=== PATIENT | male | born 1995 | race Caucasian/White ===

== ENCOUNTER 2025-02-25 20:31 | Emergency (ER) | payer BC ==
[~2025-02-25] VITALS: Ht 185.4 cm; Wt 98.9 kg
--- NOTE | 2025-02-25 21:07 | Physician Documentation ---
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 Patient reports he irrigated with eye wash prior to arrival Medication Reconciliation Allergies: Coded Allergies: No Known Allergies (Unverified , 02/25/25) Scheduled Ciprofloxacin Hcl Ophth* (Ciloxan 0.35 Ophth Drops*), 2 DROP RIGHTEYE Q6H Review of Systems ROS As stated above in the HPI, otherwise all systems are reviewed and negative. Physical Exam Vital Signs: Temperature: 99.5, Source: Temporal, Heart Rate: 104, Respiratory Rate: 16, BP: 155/91, Pulse Oximetry: 97, Weight: 98.900 Oxygen Flow Rate: 0 Physical Exam VITALS: Reviewed and as above. GENERAL: Alert, nontoxic appearing, no apparent distress. HEENT: Right eye erythematous, no periorbital swelling, PERRLA, EOMI without pain. Fluorescein dye uptake at 5 o'clock position of right eye no evidence of foreign body, no Sallie sign RESPIRATORY: No increased work of breathing, no respiratory distress, speaking in full clear sentences Progress Results/Orders Results/Orders Completed Orders - JULIÁN HERNANDEZ CART PUSHER Proparacaine Ophth Solution (Alcaine Oph (02/25/25 23:45) Ciprofloxacin Ophth Drops (Ciloxan 0.3% (02/26/25 00:15) Vital Signs 02/25/25 02/26/25 20:55 00:42 Temp 99.5 98.6 Pulse 104 99 Resp 16 18 B/P (MAP) 155/91 153/89 Pulse Ox 97 99 O2 Flow Rate 0 Medical Decision Making Additional information obtaine: N/A Findings MSE performed in triage and patient returned to ED lobby by nursing staff to await available ED room This is a 29-year-old male presented with pain in erythema to his right eye after having some foreign material into his eye earlier, patient reported he did rinse it out though continued to have foreign body sensation, fluorescein exam did not demonstrate evidence of foreign body though did show fluorescein uptake at the 5 o'clock position of the eye consistent with corneal abrasion. Reassuringly there was no Sallie sign, no pain with EOMI and no periorbital swelling or erythema. Patient to be treated with course of ciprofloxacin eyedr ops. Patient is otherwise well-appearing and appropriate for outpatient follow up. follow up instructions return to care precautions and home care instructions. Ear Diff. Dx: Considerations: Unlikely: Abrasion, Cerumen impaction, Foreign body, Otitis externa, Barotrauma, Otitis media, Perforation, Referred pain- dental, Referred pain-pharyngitis, Referred pain-sinusitis, Referred pain-TMJ syn., Tympanic Membrane Injury, Other Eye Diff. Dx: Considerations: Include: Chalaz[place], Conjuctivits-allergic, Conjuctivitis-bacterial, Conjuctivits-chlamydial, Conjuctivitis-viral, Corneal abrasion, Corneal laceration, Corneal ulceration, Foreign body-conjuctiva, Foreign body-corneal, Foreign body-intraocular, Foreign body-lid, Glaucoma, Iritis, Orbital cellulitis, Periobital cellulitis, Retinal artery occulsion, Retinal vein occlusion, Rust ring, Subconjunctival hem, Ultraviolet keratitis, Uveitis, Vitreous hemorrhage Nose Diff. Dx: Considerations: Unlikely: Abrasion, Anterior nasal bleed, Avulsion, Contusion, Coagulopathy, Fracture-nasal bone, Fracture-septum, Hypertension, Laceration, Other, Posterior nasal bleed, Retained foreign body, Septal hematoma Tooth Diff. Dx: Considerations: Unlikely: Alveolar fracture, Aveolar osteitis, ANUG, Facial cellulitis, Periapical abscess, Periodontal abscess, Post-extraction bleeding, Pulpitis, Trigeminal neuralgia, Tooth-avulsion, Tooth- eruption, Tooth-fracture, Tooth-subluxation, Other Throat Diff Dx: Considerations: Unlikely: AIDS, Epiglottitis, Esophageal candidiasis, Hand foot mouth disease, Herpangina, Herpetic stomatitis, Herpes simplex, Infection mononucleosis, Immunodeficiency, Deyvi's angina, Peritonsillar abscess, Peritonsillar cellulitis, Pharyngitis-diphtheria, Pharyngitis-strepococcal, Pharyngitis-viral, Thrush, URI, Other Departure Time of Disposition: 00:24 Disposition: 01 HOME / SELF CARE / HOMELESS Impression: Primary Impression: Corneal abrasion Qualified Codes: S05.01XA - Injury of conjunctiva and corneal abrasion without foreign body, right eye, initial encounter Condition: Improved Discharge Instructions: Corneal Abrasion Additional Instructions: Please use the antibiotic eyedrops as prescribed. You may discontinue using the antibiotic ear drops after three days if pain and redness dissipates, otherwise continue utilizing the eyedrops for five days. Please follow up with your primary care provider in the next few days. Please return to the emergency department for any new or worsening concerning symptoms. Referrals: NO PRIMARY CARE PROVIDER (PCP) Prescriptions Ciprofloxacin Hcl Ophth* (Ciloxan 0.35 Ophth Drops*) 2.5 Ml Bottle 2 DROP RIGHTEYE Q6H for 5 Days, #5 ML Prov: JULIÁN HERNANDEZ 02/26/25 Education Educated: Patient Educated regarding: diagnosis, treatment, prognosis, need for follow up Signature Scribe Signature: No scribe Attestation: The note accurately reflects work and decisions made by me.CHARLIE Kirk 02/26/25 00:26 JULIÁN HERNANDEZ Feb 25, 2025 21:07
[2025-02-26] MEDS: proparacaine 0.5% ophthalmic drops 15ml RIGHTEYE ONE (00:07)
[2025-02-26] MEDS ORDERED: CIPR2.5D21 RIGHTEYE (00:26)
[2025-02-26] MEDS: ciprofloxacin 0.3% 2.5ml ophthalmic solution RIGHTEYE ONE (00:37)
[2025-02-26 00:42] VITALS: BP 153/89; PULSE 99; RESP 18; TEMP 98.6; O2SAT 99
== END 2025-02-26 00:43 | disposition home or self-care (01) ==
LOC: ER 20:32
DX: S05.01XA Injury of conjunctiva and corneal abrasion without foreign body, right eye, initial encounter (principal); X58.XXXA Exposure to other specified factors, initial encounter; Y93.89 Activity, other specified; Y92.89 Other specified places as the place of occurrence of the external cause; Y99.8 Other external cause status
CPT/HCPCS: 99283